=== PATIENT | male | born 1995 | race Caucasian/White ===

== ENCOUNTER 2024-04-17 01:49 | Emergency (ER) | payer SELFPAY ==
[2024-04-17 02:18] LABS: #Basophils 0.07 10x3/uL (0.0-0.2); #Eosinphils 0.57 10x3/uL (0.0-0.5); #Monocytes 0.93 10x3/uL (0.0-1.1); %Basophils 0.7 % (0.0-2.0); %Eosinophils 5.4 % (0.0-6.0); %Lymphocytes 28.1 % (18.0-47.0); %Monocytes 8.8 % (0.0-10.0); %Neutrophils 56.6 % (40.0-75.0); Hematocrit 40.6 % (38.8-50.0); Hemoglobin 14.6 g/dL (13.5-17.5); Mean Corpuscular Volume 86.2 fL (81.2-95.1); Platelet Count 267 10x3/uL (150-450); RBC Distribution Width 12.3 % (11.5-14.5); Red Blood Cell (RBC) Count 4.71 10x6/uL (4.32-5.72); White Blood Cell (WBC) Count 10.6 10x3/uL (3.5-10.5)
[2024-04-17 02:25] LABS: ALT (SGPT) 86 U/L (8-55); AST (SGOT) 46 U/L (5-34); Albumin 3.8 g/dL (3.5-5.0); Alkaline Phosphatase 81 U/L (40-110); Anion Gap 15 mmol/L (10-20); BUN (Urea Nitrogen) 14 mg/dL (8.9-20.6); Bilirubin, Total 0.2 mg/dL (0.2-1.2); Calc. Creatinine Clearance 0 mL/min (70-130); Calcium 8.9 mg/dL (7.8-10.44); Carbon Dioxide 21 mmol/L (22-29); Chloride 104 mmol/L (98-107); Estimated GFR 71; Globulin 3.5 g/dL (2.4-3.5); Glucose 123 mg/dL (70-105); Lipase 24 U/L (8-78); Magnesium 1.8 mg/dL (1.6-2.6); Potassium 3.2 mmol/L (3.5-5.1); Protein, Total 7.3 g/dL (6.0-8.3); Sodium 137 mmol/L (136-145)
[2024-04-17 02:31] LABS: Troponin I Less than 0.010 ng/mL (< 0.028)
[2024-04-17] MEDS ORDERED: Potassium Chloride 20 MEQ TAB ONE (02:48)
== END 2024-04-17 04:15 | disposition home or self-care (01) ==
LOC: CSHERS 01:49
DX: R07.89 Other chest pain (principal); E87.6 Hypokalemia; K76.0 Fatty (change of) liver, not elsewhere classified
CPT/HCPCS: 71045; 71275; 80053; 83690; 83735; 83880; 84484; 85025; 93005